=== PATIENT | female | born 1955 | race Caucasian/White ===

== ENCOUNTER 2018-10-25 11:24 | Inpatient (IN) | payer OTHER | END 2018-10-30 10:05 | disposition home or self-care (01) | LOC: J6S 10-26 02:28 → JER 11:24 → JERBED 22:24 ==

== ENCOUNTER 2023-03-23 19:54 | Inpatient (IN) | payer OTHER ==
[2023-03-23] MEDS: LACTATED RINGERS SOLUTION 1,000 ML/1,000 ML INFUS.BAG IV SCH (20:45)
[2023-03-23 20:57] LABS: BASO % 0.7 % (0-2.0); EOS % 0.3 % (0-4.5); HEMATOCRIT 35.5 % (32.4-45.2); HEMOGLOBIN 11.4 GM/dL (10.7-15.3); LYMPH % 10.4 % (8-40); MCH 28.9 pg (25.7-33.7); MCHC 32.2 g/dl (32.0-36.0); MEAN CELL VOLUME 89.9 fl (80-96); MEAN PLT VOLUME 8.3 fl (7.5-11.1); MONO % 10.1 % (3.8-10.2); NEUT % 78.5 % (42.8-82.8); PLATELET COUNT 204 10^3/uL (134-434); RBC 3.95 M/mm3 (3.60-5.2); RDW 15.4 % (11.6-15.6); WHITE BLOOD COUNT 7.4 K/mm3 (4.0-10.0)
[2023-03-23 21:07] LABS: INR 1.31 (0.83-1.09); PROTHROMBIN TIME (PATIENT) 15.1 SEC (9.7-13.0)
[2023-03-23 21:09] LABS: ACTIVATED PTT 26.1 SECONDS (25.2-36.5)
[2023-03-23 21:12] LABS: CHLORIDE 95 mmol/L (98-107); SODIUM 135 mmol/L (136-145)
[2023-03-23 21:15] LABS: ALBUMIN 2.4 g/dl (3.4-5.0); ANION GAP 5 mmol/L (4-13); CO2 35 mmol/L (21-32); GLUCOSE,RANDOM 97 mg/dL (74-106); MAGNESIUM 1.4 mg/dL (1.8-2.4)
[2023-03-23 21:16] LABS: BLOOD UREA NITROGEN 35.2 mg/dL (7-18)
[2023-03-23 21:18] LABS: CREATININE 0.8 mg/dL (0.55-1.3); SGOT/AST 95 U/L (15-37)
[2023-03-23 21:19] LABS: PHOSPHOROUS 2.4 mg/dL (2.5-4.9); SGPT/ALT 16 U/L (13-61)
[2023-03-23 21:20] LABS: BILIRUBIN,TOTAL 0.5 mg/dL (0.2-1); TOT PROT 6.4 g/dl (6.4-8.2)
[2023-03-23 21:21] LABS: ALK PHOS 102 U/L (45-117)
[2023-03-23 21:39] LABS: CALCIUM 15.5 mg/dL (8.5-10.1)
[2023-03-23] MEDS ORDERED: MAGNESIUM SULF 50% (8.12 MEQ/2 ML-1 GM VIAL) IVPB ONE (21:47)
[2023-03-23] MEDS ORDERED: ONDANSETRON 4 MG/2 ML VIAL IVPUSH ONE (21:53)
[2023-03-23] MEDS ORDERED: ONDANSETRON 4 MG/2 ML VIAL ONE (22:27)
[2023-03-23] MEDS ORDERED: MAGNESIUM SULFATE IN WATER 2 GM/50 ML IVPB IVPB ONE (22:27)
[2023-03-23 23:06] LABS: EPI CELLS 8 /uL (0-25.1); HYALINE CASTS 1 /uL (0-3.1); PH,URINE 5.5 (5.0-8.0); URINE APPEARANCE TURBID; URINE BACTERIA >9,000 /uL (0-1359); URINE BILIRUBIN 1+ (NEGATIVE); URINE COLOR DK YELLOW; URINE GLUCOSE (UA) NEGATIVE (NEGATIVE); URINE KETONE NEGATIVE (NEGATIVE); URINE LEUK ESTERASE 3+ (NEGATIVE); URINE NITRITE NEGATIVE (NEGATIVE); URINE PROTEIN 1+ (NEGATIVE); URINE RBC 184 /uL (0-23.9); URINE WBC 135 /uL (0-25.8)
[2023-03-23] MEDS ORDERED: CEFTRIAXONE 1,000 MG in DEXTROSE 5%-WATER - 50 ML IVPB ONE (23:27)
[2023-03-24] MEDS ORDERED: CEFTRIAXONE 1 GM/50 ML BAG ONE (00:03)
[2023-03-24 00:46] LABS: CHLORIDE 95 mmol/L (98-107); SODIUM 137 mmol/L (136-145)
[2023-03-24 00:49] LABS: ALBUMIN 2.2 g/dl (3.4-5.0); ANION GAP 4 mmol/L (4-13); BLOOD UREA NITROGEN 36.1 mg/dL (7-18); CO2 38 mmol/L (21-32); GLUCOSE,RANDOM 86 mg/dL (74-106)
[2023-03-24 00:52] LABS: CREATININE 0.7 mg/dL (0.55-1.3); SGOT/AST 99 U/L (15-37); SGPT/ALT 14 U/L (13-61)
[2023-03-24 00:54] LABS: BILIRUBIN,TOTAL 0.4 mg/dL (0.2-1); TOT PROT 5.8 g/dl (6.4-8.2)
[2023-03-24 00:55] LABS: ALK PHOS 93 U/L (45-117)
[2023-03-24] MEDS ORDERED: ACETAMINOPHEN 1000 MG/100 ML BAG IVPB ONE (01:15)
[2023-03-24] MEDS ORDERED: SODIUM CHLORIDE 1,000 ML IV STA (01:15)
[2023-03-24] MEDS ORDERED: ACETAMINOPHEN INJECTION 100 ML IVPB ONE (01:21)
[2023-03-24] MEDS ORDERED: CALCITONIN - SALMON SYNTHETIC 400 UNIT/2 ML VIAL SQ ONE (02:35)
[2023-03-24] MEDS ORDERED: SODIUM CHLORIDE 1,000 ML IV SCH (03:30)
[2023-03-24] MEDS ORDERED: ONDANSETRON 4 MG/2 ML VIAL IVPUSH PRN (04:00)
[2023-03-24] MEDS: LEVOTHYROXINE NA 112 MCG TABLET (FP) PO SCH (07:00)
[2023-03-24 08:20] LABS: BASO % 0.6 % (0-2.0); EOS % 0.4 % (0-4.5); HEMATOCRIT 33.3 % (32.4-45.2); HEMOGLOBIN 10.8 GM/dL (10.7-15.3); LYMPH % 7.9 % (8-40); MCH 29.8 pg (25.7-33.7); MCHC 32.3 g/dl (32.0-36.0); MEAN CELL VOLUME 92.2 fl (80-96); MEAN PLT VOLUME 8.6 fl (7.5-11.1); MONO % 10.3 % (3.8-10.2); NEUT % 80.8 % (42.8-82.8); PLATELET COUNT 189 10^3/uL (134-434); RBC 3.62 M/mm3 (3.60-5.2); RDW 15.3 % (11.6-15.6); WHITE BLOOD COUNT 6.5 K/mm3 (4.0-10.0)
[2023-03-24 08:36] LABS: CHLORIDE 98 mmol/L (98-107); POTASSIUM 3.3 mmol/L (3.5-5.1); SODIUM 135 mmol/L (136-145)
[2023-03-24 08:40] LABS: ALBUMIN 2.2 g/dl (3.4-5.0); ANION GAP 5 mmol/L (4-13); BLOOD UREA NITROGEN 32.6 mg/dL (7-18); CO2 33 mmol/L (21-32); GLUCOSE,RANDOM 94 mg/dL (74-106); MAGNESIUM 1.8 mg/dL (1.8-2.4)
[2023-03-24 08:43] LABS: CREATININE 0.8 mg/dL (0.55-1.3); PHOSPHOROUS 2.2 mg/dL (2.5-4.9); SGPT/ALT 13 U/L (13-61)
[2023-03-24 08:44] LABS: SGOT/AST 97 U/L (15-37)
[2023-03-24 08:45] LABS: BILIRUBIN,TOTAL 0.5 mg/dL (0.2-1); TOT PROT 5.8 g/dl (6.4-8.2)
[2023-03-24 08:46] LABS: ALK PHOS 96 U/L (45-117)
[2023-03-24] MEDS ORDERED: POTASSIUM CHLORIDE TABS 20 MEQ TABLET.ER (FP) PO ONE (09:12)
[2023-03-24] MEDS ORDERED: MAGNESIUM 1GM/D5W - 1 GM/100 ML IVPB IVPB ONE ×2 (09:12→09:47)
[2023-03-24] MEDS ORDERED: POTASSIUM CHLORIDE ORAL LIQUID 20 MEQ/15 ML ONE (09:47)
[2023-03-24] MEDS ORDERED: HEPARIN NA (PORCINE) 5,000 UNITS/ML 1ML VIAL ONE (09:47)
[2023-03-24] MEDS: HEPARIN NA (PORCINE) 5,000 UNITS/ML 1ML VIAL SQ SCH ×2 (10:00→22:48)
[2023-03-24] MEDS: ATENOLOL 50 MG TABLET (FP) PO SCH (10:00)
[2023-03-24] MEDS ORDERED: CHLORTHALIDONE 25 MG TABLET PO SCH (10:00)
[2023-03-24 10:03] LABS: CALCIUM 14.4 mg/dL (8.5-10.1)
[2023-03-24 15:36] VITALS: BMI 31.8
[2023-03-24] MEDS: LACTATED RINGERS SOLUTION 1,000 ML/1,000 ML INFUS.BAG IV SCH (15:47)
[2023-03-24] MEDS ORDERED: POTASSIUM CHLORIDE ORAL LIQUID 20 MEQ/15 ML PO ONE (16:24)
[2023-03-24] MEDS ORDERED: NAPH,MB-DB/K PH,MBDB POWDER PACKET PO ONE (16:27)
[2023-03-24] MEDS: SODIUM CHLORIDE 1,000 ML IV SCH (18:16)
[2023-03-24] MEDS: CALCITONIN - SALMON SYNTHETIC 400 UNIT/2 ML VIAL SQ SCH (18:17)
[2023-03-24] MEDS ORDERED: MUPIROCIN 2% TOPICAL OINTMENT FOR DECOLONIZATION NS SCH (22:00)
[2023-03-24] MEDS ORDERED: CHLORHEXIDINE GLUCONATE 4% CLEANSER FOR DECOLONIZATION TP SCH (22:00)
[2023-03-24] MEDS: CEFTRIAXONE 1 GM in DEXTROSE 5%-WATER - 50 ML IVPB SCH (22:48)
[2023-03-24] MEDS: ROSUVASTATIN CA 5 MG TABLET PO SCH (23:05)
[2023-03-25] MEDS: LEVOTHYROXINE NA 112 MCG TABLET (FP) PO SCH (06:06)
[2023-03-25 07:54] LABS: POTASSIUM 3.9 mmol/L (3.5-5.1)
[2023-03-25 08:02] LABS: CALCIUM 13.8 mg/dL (8.5-10.1)
[2023-03-25 08:03] LABS: ALBUMIN 2.1 g/dl (3.4-5.0); BLOOD UREA NITROGEN 28.4 mg/dL (7-18)
[2023-03-25 08:06] LABS: CREATININE 0.8 mg/dL (0.55-1.3)
[2023-03-25 08:07] LABS: BILIRUBIN,TOTAL 0.4 mg/dL (0.2-1)
[2023-03-25 08:08] LABS: TOT PROT 5.5 g/dl (6.4-8.2)
[2023-03-25] MEDS: HEPARIN NA (PORCINE) 5,000 UNITS/ML 1ML VIAL SQ SCH ×2 (10:35→21:27)
[2023-03-25] MEDS: ATENOLOL 50 MG TABLET (FP) PO SCH (14:11)
[2023-03-25] MEDS: SODIUM CHLORIDE 1,000 ML IV SCH ×2 (16:22→23:56)
[2023-03-25] MEDS: AMINO ACIDS/PROTEIN HYDROLYS 30 ML LIQUID.PKT PO SCH (17:59)
[2023-03-25] MEDS: ROSUVASTATIN CA 5 MG TABLET PO SCH (21:27)
[2023-03-25] MEDS: CEFTRIAXONE 1 GM in DEXTROSE 5%-WATER - 50 ML IVPB SCH (21:27)
[2023-03-26] MEDS: LEVOTHYROXINE NA 112 MCG TABLET (FP) PO SCH (06:27)
[2023-03-26 08:23] LABS: BASO % 0.6 % (0-2.0); EOS % 0.2 % (0-4.5); HEMATOCRIT 31.2 % (32.4-45.2); LYMPH % 8.4 % (8-40); MCH 28.7 pg (25.7-33.7); MEAN CELL VOLUME 89.8 fl (80-96); MEAN PLT VOLUME 8.8 fl (7.5-11.1); MONO % 9.5 % (3.8-10.2); NEUT % 81.3 % (42.8-82.8); PLATELET COUNT 245 10^3/uL (134-434); RBC 3.47 M/mm3 (3.60-5.2); RDW 15.6 % (11.6-15.6); WHITE BLOOD COUNT 6.5 K/mm3 (4.0-10.0)
[2023-03-26 08:46] LABS: CALCIUM 12.9 mg/dL (8.5-10.1)
[2023-03-26 08:47] LABS: BLOOD UREA NITROGEN 26.9 mg/dL (7-18)
[2023-03-26 08:50] LABS: CREATININE 0.7 mg/dL (0.55-1.3)
[2023-03-26 08:51] LABS: BILIRUBIN,TOTAL 0.4 mg/dL (0.2-1)
[2023-03-26 08:53] LABS: TOT PROT 5.6 g/dl (6.4-8.2)
[2023-03-26] MEDS: DOCUSATE SODIUM 100 MG CAPSULE (FP) PO PRN (09:05)
[2023-03-26] MEDS: AMINO ACIDS/PROTEIN HYDROLYS 30 ML LIQUID.PKT PO SCH ×3 (09:05→17:03)
[2023-03-26] MEDS: ATENOLOL 50 MG TABLET (FP) PO SCH (09:06)
[2023-03-26] MEDS: HEPARIN NA (PORCINE) 5,000 UNITS/ML 1ML VIAL SQ SCH ×2 (09:06→21:48)
[2023-03-26] MEDS ORDERED: ZOLEDRONIC ACID 4 MG in SODIUM CHLORIDE 100 ML IVPB ONE (15:00)
[2023-03-26] MEDS: ASCORBIC ACID 250 MG TABLET (FP) PO SCH (15:17)
[2023-03-26] MEDS: MULTIVITAMINS (DAILY MVI) TABLET (FP) PO SCH (15:17)
[2023-03-26] MEDS: SODIUM CHLORIDE 1,000 ML IV SCH (15:55)
[2023-03-26] MEDS ORDERED: ACETAMINOPHEN 325 MG TABLET (FP) PO ONE (20:36)
[2023-03-26] MEDS ORDERED: POTASSIUM CHLORIDE ORAL LIQUID 20 MEQ/15 ML PO ONE (21:30)
[2023-03-26] MEDS: ROSUVASTATIN CA 5 MG TABLET PO SCH (21:48)
[2023-03-26] MEDS: CEFTRIAXONE 1 GM in DEXTROSE 5%-WATER - 50 ML IVPB SCH (21:48)
[2023-03-27] MEDS: LEVOTHYROXINE NA 112 MCG TABLET (FP) PO SCH (06:09)
[2023-03-27 07:52] LABS: BASO % 0.2 % (0-2.0); HEMATOCRIT 30.3 % (32.4-45.2); HEMOGLOBIN 10.2 GM/dL (10.7-15.3); LYMPH % 5.6 % (8-40); MCH 29.7 pg (25.7-33.7); MCHC 33.6 g/dl (32.0-36.0); MEAN CELL VOLUME 88.6 fl (80-96); MEAN PLT VOLUME 8.6 fl (7.5-11.1); MONO % 7.3 % (3.8-10.2); NEUT % 86.9 % (42.8-82.8); PLATELET COUNT 234 10^3/uL (134-434); RBC 3.42 M/mm3 (3.60-5.2); RDW 15.3 % (11.6-15.6)
[2023-03-27 08:11] LABS: CHLORIDE 108 mmol/L (98-107); SODIUM 145 mmol/L (136-145)
[2023-03-27 08:14] LABS: CALCIUM 13.3 mg/dL (8.5-10.1)
[2023-03-27 08:15] LABS: ALBUMIN 2.1 g/dl (3.4-5.0); CO2 30 mmol/L (21-32); GLUCOSE,RANDOM 110 mg/dL (74-106)
[2023-03-27 08:17] LABS: BLOOD UREA NITROGEN 29.7 mg/dL (7-18)
[2023-03-27 08:18] LABS: CREATININE 0.7 mg/dL (0.55-1.3); SGOT/AST 100 U/L (15-37); SGPT/ALT 14 U/L (13-61)
[2023-03-27 08:19] LABS: TOT PROT 5.5 g/dl (6.4-8.2)
[2023-03-27 08:20] LABS: BILIRUBIN,TOTAL 0.5 mg/dL (0.2-1)
[2023-03-27 08:21] LABS: ALK PHOS 88 U/L (45-117)
[2023-03-27 08:26] LABS: ANION GAP 7 mmol/L (4-13); POTASSIUM 2.7 mmol/L (3.5-5.1)
[2023-03-27] MEDS: ASCORBIC ACID 250 MG TABLET (FP) PO SCH (10:08)
[2023-03-27] MEDS: HEPARIN NA (PORCINE) 5,000 UNITS/ML 1ML VIAL SQ SCH ×2 (10:08→21:21)
[2023-03-27] MEDS: MULTIVITAMINS (DAILY MVI) TABLET (FP) PO SCH (10:08)
[2023-03-27] MEDS: AMINO ACIDS/PROTEIN HYDROLYS 30 ML LIQUID.PKT PO SCH ×3 (10:08→16:51)
[2023-03-27] MEDS: ATENOLOL 50 MG TABLET (FP) PO SCH (10:09)
[2023-03-27] MEDS ORDERED: POTASSIUM CHLORIDE ORAL LIQUID 20 MEQ/15 ML PO ONE (12:00)
[2023-03-27] MEDS: KCL 10 MEQ IVPB 10 MEQ/100 ML INFUS.BAG IVPB SCH ×3 (12:14→16:19)
[2023-03-27] MEDS: SODIUM CHLORIDE 1,000 ML IV SCH (16:43)
[2023-03-27] MEDS: ROSUVASTATIN CA 5 MG TABLET PO SCH (21:21)
[2023-03-27] MEDS: DOCUSATE SODIUM 100 MG CAPSULE (FP) PO PRN (22:44)
[2023-03-28] MEDS: SODIUM CHLORIDE 1,000 ML IV SCH (00:24)
[2023-03-28] MEDS ORDERED: MELATONIN 5 MG TABLETS PO ONE (02:07)
[2023-03-28] MEDS: LEVOTHYROXINE NA 112 MCG TABLET (FP) PO SCH (06:28)
[2023-03-28] MEDS: AMINO ACIDS/PROTEIN HYDROLYS 30 ML LIQUID.PKT PO SCH ×3 (08:44→19:06)
[2023-03-28] MEDS: HEPARIN NA (PORCINE) 5,000 UNITS/ML 1ML VIAL SQ SCH ×2 (09:10→23:26)
[2023-03-28] MEDS: MULTIVITAMINS (DAILY MVI) TABLET (FP) PO SCH (09:10)
[2023-03-28] MEDS: ASCORBIC ACID 250 MG TABLET (FP) PO SCH (09:10)
[2023-03-28] MEDS: ATENOLOL 50 MG TABLET (FP) PO SCH (10:13)
[2023-03-28 12:00] LABS: CHLORIDE 112 mmol/L (98-107); SODIUM 147 mmol/L (136-145)
[2023-03-28 12:02] LABS: CALCIUM 11.4 mg/dL (8.5-10.1)
[2023-03-28 12:03] LABS: BLOOD UREA NITROGEN 28.6 mg/dL (7-18); CO2 28 mmol/L (21-32); GLUCOSE,RANDOM 115 mg/dL (74-106)
[2023-03-28 12:06] LABS: CREATININE 0.7 mg/dL (0.55-1.3)
[2023-03-28 12:07] LABS: SGOT/AST 89 U/L (15-37); SGPT/ALT 14 U/L (13-61)
[2023-03-28 12:08] LABS: BILIRUBIN,TOTAL 0.4 mg/dL (0.2-1)
[2023-03-28 12:09] LABS: ALK PHOS 80 U/L (45-117)
[2023-03-28 12:14] LABS: ANION GAP 7 mmol/L (4-13); POTASSIUM 2.4 mmol/L (3.5-5.1)
[2023-03-28] MEDS: POTASSIUM CHLORIDE ORAL LIQUID 20 MEQ/15 ML PO SCH ×2 (14:17→23:26)
[2023-03-28] MEDS: KCL 10 MEQ IVPB 10 MEQ/100 ML INFUS.BAG IVPB SCH ×3 (14:58→19:06)
[2023-03-28 16:07] LABS: CHLORIDE 109 mmol/L (98-107); SODIUM 147 mmol/L (136-145)
[2023-03-28 16:09] LABS: BLOOD UREA NITROGEN 28.4 mg/dL (7-18); CO2 27 mmol/L (21-32); GLUCOSE,RANDOM 135 mg/dL (74-106)
[2023-03-28 16:12] LABS: CREATININE 0.8 mg/dL (0.55-1.3)
[2023-03-28] MEDS: D5-1/2NS+40 MEQ KCL - 40 MEQ/1,000 ML INFUS.BAG IV SCH (16:30)
[2023-03-28 16:33] LABS: ANION GAP 11 mmol/L (4-13); POTASSIUM 2.5 mmol/L (3.5-5.1)
[2023-03-28] MEDS: DOCUSATE SODIUM 100 MG CAPSULE (FP) PO PRN (17:25)
[2023-03-28] MEDS: ROSUVASTATIN CA 5 MG TABLET PO SCH (23:26)
[2023-03-29] MEDS ORDERED: MELATONIN 5 MG TABLETS PO ONE (00:18)
[2023-03-29] MEDS ORDERED: ACETAMINOPHEN 325 MG TABLET (FP) PO ONE (00:18)
[2023-03-29] MEDS: CALCITONIN - SALMON SYNTHETIC 400 UNIT/2 ML VIAL SQ SCH (00:42)
[2023-03-29] MEDS: LEVOTHYROXINE NA 112 MCG TABLET (FP) PO SCH (06:12)
[2023-03-29] MEDS: AMINO ACIDS/PROTEIN HYDROLYS 30 ML LIQUID.PKT PO SCH ×3 (08:46→17:12)
[2023-03-29 09:35] LABS: BASO % 0.1 % (0-2.0); EOS % 0.7 % (0-4.5); HEMATOCRIT 28.5 % (32.4-45.2); HEMOGLOBIN 9.1 GM/dL (10.7-15.3); MCH 28.7 pg (25.7-33.7); MCHC 31.9 g/dl (32.0-36.0); MEAN PLT VOLUME 8.9 fl (7.5-11.1); MONO % 10.4 % (3.8-10.2); NEUT % 80.8 % (42.8-82.8); PLATELET COUNT 179 10^3/uL (134-434); RBC 3.16 M/mm3 (3.60-5.2); RDW 15.5 % (11.6-15.6); WHITE BLOOD COUNT 7.3 K/mm3 (4.0-10.0)
[2023-03-29 10:00] LABS: POTASSIUM 3.8 mmol/L (3.5-5.1)
[2023-03-29 10:17] LABS: CALCIUM 9.8 mg/dL (8.5-10.1)
[2023-03-29 10:19] LABS: ALBUMIN 1.9 g/dl (3.4-5.0); BLOOD UREA NITROGEN 29.3 mg/dL (7-18)
[2023-03-29 10:21] LABS: CREATININE 0.7 mg/dL (0.55-1.3)
[2023-03-29 10:23] LABS: BILIRUBIN,TOTAL 0.4 mg/dL (0.2-1); TOT PROT 4.8 g/dl (6.4-8.2)
[2023-03-29] MEDS: POTASSIUM CHLORIDE ORAL LIQUID 20 MEQ/15 ML PO SCH ×2 (10:47→21:38)
[2023-03-29] MEDS: MULTIVITAMINS (DAILY MVI) TABLET (FP) PO SCH (10:47)
[2023-03-29] MEDS: HEPARIN NA (PORCINE) 5,000 UNITS/ML 1ML VIAL SQ SCH ×2 (10:47→21:38)
[2023-03-29] MEDS: ASCORBIC ACID 250 MG TABLET (FP) PO SCH (10:48)
[2023-03-29] MEDS: ATENOLOL 50 MG TABLET (FP) PO SCH (10:48)
[2023-03-29] MEDS: D5-1/2NS+40 MEQ KCL - 40 MEQ/1,000 ML INFUS.BAG IV SCH (15:11)
[2023-03-29] MEDS: ROSUVASTATIN CA 5 MG TABLET PO SCH (21:38)
[2023-03-29] MEDS: MELATONIN 5 MG TABLETS PO PRN (23:22)
[2023-03-30] MEDS: D5-1/2NS+40 MEQ KCL - 40 MEQ/1,000 ML INFUS.BAG IV SCH ×2 (03:21→16:37)
[2023-03-30] MEDS: LEVOTHYROXINE NA 112 MCG TABLET (FP) PO SCH (06:04)
[2023-03-30] MEDS: MULTIVITAMINS (DAILY MVI) TABLET (FP) PO SCH (09:27)
[2023-03-30] MEDS: AMINO ACIDS/PROTEIN HYDROLYS 30 ML LIQUID.PKT PO SCH ×3 (09:27→17:26)
[2023-03-30] MEDS: ASCORBIC ACID 250 MG TABLET (FP) PO SCH (09:27)
[2023-03-30] MEDS: HEPARIN NA (PORCINE) 5,000 UNITS/ML 1ML VIAL SQ SCH ×2 (09:27→21:11)
[2023-03-30] MEDS: POTASSIUM CHLORIDE ORAL LIQUID 20 MEQ/15 ML PO SCH ×2 (09:27→21:12)
[2023-03-30] MEDS: ATENOLOL 50 MG TABLET (FP) PO SCH (09:29)
[2023-03-30 10:51] LABS: POTASSIUM 3.7 mmol/L (3.5-5.1)
[2023-03-30 10:53] LABS: BLOOD UREA NITROGEN 19.7 mg/dL (7-18)
[2023-03-30 10:56] LABS: CREATININE 0.6 mg/dL (0.55-1.3)
[2023-03-30] MEDS: LACTULOSE 20 GM/30 ML UDC (FOR ORAL USE ONLY) PO SCH ×2 (13:13→21:12)
[2023-03-30] MEDS: ROSUVASTATIN CA 5 MG TABLET PO SCH (21:11)
[2023-03-30] MEDS: MELATONIN 5 MG TABLETS PO PRN (21:11)
[2023-03-31] MEDS: D5-1/2NS+40 MEQ KCL - 40 MEQ/1,000 ML INFUS.BAG IV SCH (05:45)
[2023-03-31] MEDS: LACTULOSE 20 GM/30 ML UDC (FOR ORAL USE ONLY) PO SCH ×3 (05:59→21:42)
[2023-03-31] MEDS: LEVOTHYROXINE NA 112 MCG TABLET (FP) PO SCH (06:00)
[2023-03-31] MEDS: ASCORBIC ACID 250 MG TABLET (FP) PO SCH ×2 (10:47→12:21)
[2023-03-31] MEDS: POTASSIUM CHLORIDE ORAL LIQUID 20 MEQ/15 ML PO SCH ×2 (10:47→21:42)
[2023-03-31] MEDS: AMINO ACIDS/PROTEIN HYDROLYS 30 ML LIQUID.PKT PO SCH ×3 (10:48→17:50)
[2023-03-31] MEDS: MULTIVITAMINS (DAILY MVI) TABLET (FP) PO SCH ×2 (10:49→12:14)
[2023-03-31] MEDS: ATENOLOL 50 MG TABLET (FP) PO SCH (12:12)
[2023-03-31] MEDS: ROSUVASTATIN CA 5 MG TABLET PO SCH (21:43)
[2023-04-01] MEDS: LEVOTHYROXINE NA 112 MCG TABLET (FP) PO SCH (06:18)
[2023-04-01] MEDS: LACTULOSE 20 GM/30 ML UDC (FOR ORAL USE ONLY) PO SCH ×3 (06:18→22:43)
[2023-04-01] MEDS: AMINO ACIDS/PROTEIN HYDROLYS 30 ML LIQUID.PKT PO SCH ×3 (08:30→18:26)
[2023-04-01] MEDS: ASCORBIC ACID 250 MG TABLET (FP) PO SCH (09:54)
[2023-04-01] MEDS: MULTIVITAMINS (DAILY MVI) TABLET (FP) PO SCH (09:54)
[2023-04-01] MEDS: POTASSIUM CHLORIDE ORAL LIQUID 20 MEQ/15 ML PO SCH ×2 (09:55→22:43)
[2023-04-01] MEDS: ATENOLOL 50 MG TABLET (FP) PO SCH (09:55)
[2023-04-01] MEDS: ROSUVASTATIN CA 5 MG TABLET PO SCH (22:44)
[2023-04-02] MEDS: LACTULOSE 20 GM/30 ML UDC (FOR ORAL USE ONLY) PO SCH ×4 (05:53→22:31)
[2023-04-02] MEDS: LEVOTHYROXINE NA 112 MCG TABLET (FP) PO SCH (06:34)
[2023-04-02 06:55] VITALS: RESP 18
[2023-04-02] MEDS: AMINO ACIDS/PROTEIN HYDROLYS 30 ML LIQUID.PKT PO SCH ×3 (09:18→17:55)
[2023-04-02] MEDS: ASCORBIC ACID 250 MG TABLET (FP) PO SCH (09:18)
[2023-04-02] MEDS: MULTIVITAMINS (DAILY MVI) TABLET (FP) PO SCH (09:18)
[2023-04-02] MEDS: POTASSIUM CHLORIDE ORAL LIQUID 20 MEQ/15 ML PO SCH ×3 (09:19→22:31)
[2023-04-02] MEDS: ATENOLOL 50 MG TABLET (FP) PO SCH (09:20)
[2023-04-02] MEDS: MELATONIN 5 MG TABLETS PO PRN (21:56)
[2023-04-02] MEDS: ROSUVASTATIN CA 5 MG TABLET PO SCH (21:58)
[2023-04-03] MEDS: LACTULOSE 20 GM/30 ML UDC (FOR ORAL USE ONLY) PO SCH ×2 (05:34→14:30)
[2023-04-03] MEDS: LEVOTHYROXINE NA 112 MCG TABLET (FP) PO SCH (06:00)
[2023-04-03] MEDS: AMINO ACIDS/PROTEIN HYDROLYS 30 ML LIQUID.PKT PO SCH ×3 (10:57→17:29)
[2023-04-03] MEDS: POTASSIUM CHLORIDE ORAL LIQUID 20 MEQ/15 ML PO SCH (10:57)
[2023-04-03] MEDS: ASCORBIC ACID 250 MG TABLET (FP) PO SCH (10:57)
[2023-04-03] MEDS: MULTIVITAMINS (DAILY MVI) TABLET (FP) PO SCH (10:58)
[2023-04-03] MEDS: ATENOLOL 50 MG TABLET (FP) PO SCH (10:59)
[2023-04-03 14:38] VITALS: BP 126/80; PULSE 94; TEMP 98.1
== END 2023-04-03 17:46 | disposition home or self-care (01) | DRG 640 ==
LOC: JER 19:54 → JERBED 21:45 → J4S 03-24 14:27
PROVIDERS: ADMIT Internal Medicine; ATTEND Family Medicine
DX: E83.52 Hypercalcemia (principal); G93.41 Metabolic encephalopathy; N39.0 Urinary tract infection, site not specified; C78.01 Secondary malignant neoplasm of right lung; I24.89 Other forms of acute ischemic heart disease; J91.0 Malignant pleural effusion; E86.0 Dehydration; I10 Essential (primary) hypertension; E03.9 Hypothyroidism, unspecified; E78.5 Hyperlipidemia, unspecified; E83.42 Hypomagnesemia; C57.9 Malignant neoplasm of female genital organ, unspecified; E88.09 Other disorders of plasma-protein metabolism, not elsewhere classified; E83.39 Other disorders of phosphorus metabolism; E87.6 Hypokalemia
CPT/HCPCS: 0241U-QW; 36415; 70450-TC; 71045-TC-FY; 71046-TC-FY; 80048; 80053; 81003; 82140; 82310; 82962; 83735; 83970; 84100; 84439; 84443; 84484; 85025; 85610; 85730; 86850; 86900; 86901; 87086; 87186; 93005; 93010; 97116-GP; 99285-25; J1644; J3489

== ENCOUNTER 2023-04-11 13:53 | Observation (INO) | payer OTHER ==
[2023-04-11 14:36] VITALS: BMI 29.2
[2023-04-11 15:05] LABS: BASO % 0.1 % (0-2.0); EOS % 0.1 % (0-4.5); HEMATOCRIT 38.2 % (32.4-45.2); HEMOGLOBIN 12.1 GM/dL (10.7-15.3); MCH 28.3 pg (25.7-33.7); MCHC 31.8 g/dl (32.0-36.0); MEAN CELL VOLUME 89.2 fl (80-96); MEAN PLT VOLUME 8.1 fl (7.5-11.1); MONO % 5.9 % (3.8-10.2); NEUT % 89.9 % (42.8-82.8); PLATELET COUNT 188 10^3/uL (134-434); RBC 4.29 M/mm3 (3.60-5.2); RDW 17.9 % (11.6-15.6); WHITE BLOOD COUNT 15.2 K/mm3 (4.0-10.0)
[2023-04-11 15:09] LABS: INR 2.51 (0.83-1.09); PROTHROMBIN TIME (PATIENT) 28.9 SEC (9.7-13.0)
[2023-04-11 15:12] LABS: ACTIVATED PTT 26.7 SECONDS (25.2-36.5)
[2023-04-11 15:36] LABS: CALCIUM 8.6 mg/dL (8.5-10.1)
[2023-04-11 15:37] LABS: BLOOD UREA NITROGEN 21.5 mg/dL (7-18); MAGNESIUM 1.4 mg/dL (1.8-2.4)
[2023-04-11 15:40] LABS: CREATININE 0.8 mg/dL (0.55-1.3)
[2023-04-11 15:42] LABS: BILIRUBIN,TOTAL 0.6 mg/dL (0.2-1)
[2023-04-11] MEDS ORDERED: VANCOMYCIN 1 GM PREMIX - 1 GM/200 ML BAG IVPB ONE (15:42)
[2023-04-11] MEDS ORDERED: MAGNESIUM SULFATE IN WATER 2 GM/50 ML IVPB IVPB ONE ×2 (15:42→15:57)
[2023-04-11] MEDS ORDERED: PIPERACILLIN/TAZOB 4.5 GM 4.5 GM/100 ML BAG IVPB ONE (15:57)
[2023-04-11] MEDS: PIPERACILLIN/TAZOB 4.5 GM 4.5 GM in DEXTROSE 5%-WATER 100 ML IVPB ONE ×2 (16:03→17:00)
[2023-04-11] MEDS ORDERED: VANCOMYCIN 1 GRAM (PRE-DOCKED) 1,000 MG/250 ML BAG IVPB ONE (17:32)
[2023-04-11] MEDS ORDERED: SODIUM CHLORIDE 0.9% 500 ML INFUS.BAG IV ONE (18:38)
[2023-04-11] MEDS: ACETAMINOPHEN 1000 MG/100 ML BAG IVPB SCH (21:10)
[2023-04-12] MEDS: ACETAMINOPHEN 1000 MG/100 ML BAG IVPB SCH ×2 (03:49→13:21)
[2023-04-12] MEDS: LEVOTHYROXINE NA 112 MCG TABLET (FP) PO SCH (06:22)
[2023-04-12 09:06] LABS: HEMATOCRIT 35.3 % (32.4-45.2); HEMOGLOBIN 11.4 GM/dL (10.7-15.3); MCHC 32.2 g/dl (32.0-36.0); MEAN CELL VOLUME 90.3 fl (80-96); MEAN PLT VOLUME 8.4 fl (7.5-11.1); PLATELET COUNT 152 10^3/uL (134-434); RBC 3.91 M/mm3 (3.60-5.2); RDW 18.6 % (11.6-15.6); WHITE BLOOD COUNT 14.7 K/mm3 (4.0-10.0)
[2023-04-12 09:21] LABS: POTASSIUM 3.5 mmol/L (3.5-5.1)
[2023-04-12 09:24] LABS: ALBUMIN 1.9 g/dl (3.4-5.0); BLOOD UREA NITROGEN 24.6 mg/dL (7-18); CALCIUM 8.3 mg/dL (8.5-10.1)
[2023-04-12 09:27] LABS: CREATININE 0.8 mg/dL (0.55-1.3)
[2023-04-12 09:28] LABS: BILIRUBIN,TOTAL 1.1 mg/dL (0.2-1); TOT PROT 5.5 g/dl (6.4-8.2)
[2023-04-12 10:06] LABS: ANISOCYTOSIS 0; MACROCYTOSIS 0
[2023-04-12] MEDS ORDERED: FENTANYL PATCH WASTE TD PRN (12:55)
[2023-04-12] MEDS ORDERED: DOCUSATE SODIUM 100 MG CAPSULE (FP) PO PRN (12:55)
[2023-04-12] MEDS ORDERED: COLLAGENASE CLOSTRIDIUM HIST. 30 GRAMS TUBE TP SCH (13:00)
[2023-04-12] MEDS ORDERED: fentaNYL 12mcg/hr PATCH.TD72 TD SCH (13:00)
[2023-04-12] MEDS: PIPERACILLIN/TAZOB 3.375 GM 3.375 GM in DEXTROSE 5%-WATER - 50 ML IVPB SCH ×2 (14:19→17:01)
[2023-04-12] MEDS ORDERED: LORazepam 2 MG/ML SDV VIAL IVPUSH ONE (19:37)
[2023-04-12] MEDS ORDERED: HALOPERIDOL LACTATE 5 MG/ML IM ONE (21:16)
[2023-04-13] MEDS: PIPERACILLIN/TAZOB 3.375 GM 3.375 GM in DEXTROSE 5%-WATER - 50 ML IVPB SCH ×3 (03:19→17:54)
[2023-04-13] MEDS ORDERED: LORazepam 2 MG/ML SDV VIAL IVPUSH ONE (04:30)
[2023-04-13] MEDS: LEVOTHYROXINE NA 112 MCG TABLET (FP) PO SCH (06:52)
[2023-04-13 08:28] LABS: URINE APPEARANCE CLOUDY; URINE BILIRUBIN NEGATIVE (NEGATIVE); URINE COLOR YELLOW; URINE GLUCOSE (UA) NEGATIVE (NEGATIVE)
[2023-04-13 08:29] LABS: URINE KETONE TRACE (NEGATIVE); URINE LEUK ESTERASE 1+ (NEGATIVE); URINE NITRITE NEGATIVE (NEGATIVE); URINE PROTEIN 3+ (NEGATIVE)
[2023-04-13] MEDS ORDERED: DEXTROSE 5%-NORMAL SALINE 1,000 ML IV SCH (10:45)
[2023-04-13] MEDS ORDERED: HALOPERIDOL LACTATE 5 MG/ML IM ONE (13:39)
[2023-04-13] MEDS ORDERED: OLANZapine 2.5 MG TABLET PO SCH (22:00)
[2023-04-13 23:29] VITALS: BP 132/73; PULSE 123; RESP 20; TEMP 97.4
== END 2023-04-13 23:36 ==
LOC: JER 13:53 → UNDOADMOB 14:43 → JERBED 14:43 → INTOOBSV 14:43 → JERBED 15:55 → J7W 21:04
PROVIDERS: ADMIT Internal Medicine; ATTEND Internal Medicine
PROC: 3E033NZ Introduction of Analgesics, Hypnotics, Sedatives into Peripheral Vein, Percutaneous Approach (ICD-10-PCS; principal; 2023-04-11)
PROC: 3E0337Z Introduction of Electrolytic and Water Balance Substance into Peripheral Vein, Percutaneous Approach (ICD-10-PCS; 2023-04-11)
PROC: 3E023NZ Introduction of Analgesics, Hypnotics, Sedatives into Muscle, Percutaneous Approach (ICD-10-PCS; 2023-04-11)
PROC: 3E03329 Introduction of Other Anti-infective into Peripheral Vein, Percutaneous Approach (ICD-10-PCS; 2023-04-11)
DX: L03.317 Cellulitis of buttock (principal); R62.7 Adult failure to thrive; C76.3 Malignant neoplasm of pelvis; Z71.89 Other specified counseling; C77.9 Secondary and unspecified malignant neoplasm of lymph node, unspecified; R53.1 Weakness; C78.00 Secondary malignant neoplasm of unspecified lung; S31.819A Unspecified open wound of right buttock, initial encounter; X58.XXXA Exposure to other specified factors, initial encounter; Y93.89 Activity, other specified; Y92.89 Other specified places as the place of occurrence of the external cause; R00.0 Tachycardia, unspecified; E03.9 Hypothyroidism, unspecified; I10 Essential (primary) hypertension; E78.5 Hyperlipidemia, unspecified; N32.81 Overactive bladder; R63.0 Anorexia; D64.9 Anemia, unspecified; K62.5 Hemorrhage of anus and rectum
CPT/HCPCS: 0241U-QW; 36415; 71045-TC-FY; 74177-TC; 80053; 81003; 82962; 83735; 85025; 85610; 85730; 86704; 86803; 86850; 86900; 86901; 87040; 87086; 87186; 87340; 87517; 93005; 93010; 96365; 96366; 96367; 96372; 96375; 97162-GP; 99285-25; G0378

== ENCOUNTER 2023-04-16 17:28 | Inpatient (IN) | payer OTHER ==
[2023-04-16] MEDS ORDERED: ACETAMINOPHEN 1000 MG/100 ML BAG IVPB ONE (17:55)
[2023-04-16] MEDS ORDERED: ACETAMINOPHEN INJECTION 100 ML IVPB ONE (17:57)
[2023-04-16 18:13] LABS: VENOUS BASE EXCESS -7.5 mmol/L (-2-2); VENOUS PCO2 42.6 mmHg (38-52); VENOUS PH 7.269 (7.310-7.410)
[2023-04-16 18:14] LABS: MCH 28.2 pg (25.7-33.7); MCHC 30.2 g/dl (32.0-36.0); MEAN CELL VOLUME 93.6 fl (80-96); MEAN PLT VOLUME 8.6 fl (7.5-11.1); PLATELET COUNT 197 10^3/uL (134-434); RBC 3.53 M/mm3 (3.60-5.2); RDW 20.2 % (11.6-15.6); WHITE BLOOD COUNT 27.2 K/mm3 (4.0-10.0)
[2023-04-16 18:23] LABS: ADD RBC MORPHOLOGY YES
[2023-04-16 18:30] LABS: INR 2.17 (0.83-1.09)
[2023-04-16 18:32] LABS: POTASSIUM 4.1 mmol/L (3.5-5.1)
[2023-04-16] MEDS ORDERED: PIPERACILLIN/TAZOB 4.5 GM 4.5 GM in DEXTROSE 5%-WATER 100 ML IVPB ONE (18:32)
[2023-04-16] MEDS ORDERED: VANCOMYCIN 1,000 MG in DEXTROSE 5%-WATER - 250 ML IVPB ONE (18:32)
[2023-04-16 18:33] LABS: ACTIVATED PTT 22.3 SECONDS (25.2-36.5)
[2023-04-16 18:36] LABS: CALCIUM 8.9 mg/dL (8.5-10.1)
[2023-04-16 18:39] LABS: CREATININE 1.7 mg/dL (0.55-1.3)
[2023-04-16 18:41] LABS: BILIRUBIN,TOTAL 0.9 mg/dL (0.2-1); TOT PROT 5.3 g/dl (6.4-8.2)
[2023-04-16 18:46] LABS: BLOOD UREA NITROGEN 69.3 mg/dL (7-18)
[2023-04-16 18:54] LABS: ANISOCYTOSIS 2+; MACROCYTOSIS 0; OVALOCYTE 2+; ROULEAU 2+; TEAR DROP CELLS 2+; TOXIC GRANULATION 2+
[2023-04-16] MEDS ORDERED: LACTATED RINGERS SOLUTION 1000 ML INFUS.BAG IV ONE (18:54)
[2023-04-16] MEDS ORDERED: VANCOMYCIN 1 GRAM (PRE-DOCKED) 1,000 MG/250 ML BAG IVPB ONE (19:03)
[2023-04-16] MEDS ORDERED: PIPERACILLIN/TAZOB 3.375 GM 3.375 GM/50 ML BAG IVPB ONE (19:03)
[2023-04-16] MEDS ORDERED: PIPERACILLIN/TAZOB 4.5 GM 4.5 GM/100 ML BAG IVPB ONE (19:08)
[2023-04-16 21:17] LABS: URINE APPEARANCE TURBID; URINE BILIRUBIN NEGATIVE (NEGATIVE); URINE COLOR YELLOW; URINE GLUCOSE (UA) NEGATIVE (NEGATIVE); URINE KETONE TRACE (NEGATIVE); URINE LEUK ESTERASE 1+ (NEGATIVE); URINE NITRITE NEGATIVE (NEGATIVE); URINE PROTEIN 2+ (NEGATIVE)
[2023-04-16 21:49] LABS: EPI CELLS QNS /uL (0-25.1); HYALINE CASTS QNS /uL (0-3.1); URINE BACTERIA QNS /uL (0-1359); URINE RBC QNS /uL (0-23.9); URINE WBC QNS /uL (0-25.8); YEAST QNS (NEGATIVE)
[2023-04-16] MEDS ORDERED: SODIUM CHLORIDE 1,000 ML IV STA ×2 (21:50→22:20)
[2023-04-16] MEDS ORDERED: VANCOMYCIN 1,000 MG in DEXTROSE 5%-WATER - 250 ML IVPB SCH (22:00)
[2023-04-16] MEDS ORDERED: D5-1/2NS+20 MEQ KCL - 20 MEQ/1,000 ML INFUS.BAG IV SCH (22:00)
[2023-04-16 22:08] LABS: MAGNESIUM 2.2 mg/dL (1.8-2.4)
[2023-04-16 22:10] LABS: PHOSPHOROUS 5.4 mg/dL (2.5-4.9)
[2023-04-17] MEDS ORDERED: ACETAMINOPHEN 1000 MG/100 ML BAG IVPB PRN ×2 (00:30→08:14)
[2023-04-17 02:26] VITALS: BMI 28.5
[2023-04-17] MEDS: PIPERACILLIN/TAZOB 2.25 GM 2.25 GM in DEXTROSE 5%-WATER - 50 ML IVPB SCH ×4 (03:00→15:04)
[2023-04-17] MEDS ORDERED: VANCOMYCIN/WATER FOR INJ (PEG) 1,000 MG/200 ML BAG IVPB ONE (06:00)
[2023-04-17] MEDS: DEXTROSE 5%-0.45% SALINE 1,000 ML IV SCH (06:15)
[2023-04-17 08:30] LABS: HEMATOCRIT 29.7 % (32.4-45.2); HEMOGLOBIN 9.1 GM/dL (10.7-15.3); MCH 29.3 pg (25.7-33.7); MCHC 30.8 g/dl (32.0-36.0); MEAN CELL VOLUME 95.2 fl (80-96); MEAN PLT VOLUME 8.3 fl (7.5-11.1); PLATELET COUNT 184 10^3/uL (134-434); RBC 3.11 M/mm3 (3.60-5.2); RDW 20.3 % (11.6-15.6); WHITE BLOOD COUNT 26.9 K/mm3 (4.0-10.0)
[2023-04-17 08:52] LABS: CALCIUM 7.8 mg/dL (8.5-10.1)
[2023-04-17 08:53] LABS: ALBUMIN 1.8 g/dl (3.4-5.0); BLOOD UREA NITROGEN 68.6 mg/dL (7-18)
[2023-04-17 08:56] LABS: LACTIC ACID 3.5 mmol/L (0.4-2.0)
[2023-04-17 08:57] LABS: BILIRUBIN,TOTAL 0.6 mg/dL (0.2-1); CREATININE 1.8 mg/dL (0.55-1.3)
[2023-04-17 09:35] LABS: ARTERIAL BLD GAS O2 SATURATION 98.5 % (95-98); ARTERIAL BLOOD GAS BASE EXCESS -6.8 mmol/L (-2-2); ARTERIAL BLOOD GAS PO2 145.7 mmHg (80-100); ARTERIAL BLOOD GAS pH 7.244 (7.350-7.450)
[2023-04-17 09:37] LABS: ALLENS TEST POSITIVE
[2023-04-17 10:40] LABS: ANISOCYTOSIS 2+; MACROCYTOSIS 0; OVALOCYTE 2+; TEAR DROP CELLS 2+
[2023-04-17] MEDS: PANTOPRAZOLE 20 MG TABLET PO SCH (11:39)
[2023-04-17] MEDS ORDERED: VANCOMYCIN/WATER FOR INJ (PEG) 1,000 MG/200 ML BAG IVPB SCH ×2 (14:15→17:00)
[2023-04-17] MEDS ORDERED: DAPTOMYCIN IVPB ONE (17:00)
[2023-04-17] MEDS ORDERED: SODIUM CHLORIDE IVPB ONE (17:00)
[2023-04-17] MEDS: CEFEPIME 1 GM in DEXTROSE 5%-WATER 100 ML IVPB SCH (17:34)
[2023-04-17] MEDS: SODIUM HYPOCHLORITE 0.25%- 473 ML BULK BOTTLE TP SCH (18:23)
[2023-04-18] MEDS: DEXTROSE 5%-0.45% SALINE 1,000 ML IV SCH (05:29)
[2023-04-18] MEDS: CEFEPIME 1 GM in DEXTROSE 5%-WATER 100 ML IVPB SCH ×2 (05:29→18:42)
[2023-04-18 06:39] LABS: MCH 29.3 pg (25.7-33.7); MCHC 30.7 g/dl (32.0-36.0); MEAN CELL VOLUME 95.6 fl (80-96); MEAN PLT VOLUME 8.1 fl (7.5-11.1); PLATELET COUNT 190 10^3/uL (134-434); RBC 2.72 M/mm3 (3.60-5.2); RDW 20.4 % (11.6-15.6); WHITE BLOOD COUNT 26.4 K/mm3 (4.0-10.0)
[2023-04-18 07:21] LABS: POTASSIUM 3.9 mmol/L (3.5-5.1)
[2023-04-18 07:25] LABS: ALBUMIN 1.8 g/dl (3.4-5.0); CALCIUM 7.2 mg/dL (8.5-10.1)
[2023-04-18 07:26] LABS: BLOOD UREA NITROGEN 72.3 mg/dL (7-18)
[2023-04-18 07:30] LABS: TOT PROT 4.9 g/dl (6.4-8.2)
[2023-04-18 07:31] LABS: BILIRUBIN,TOTAL 0.4 mg/dL (0.2-1)
[2023-04-18 08:55] LABS: ANISOCYTOSIS 1+; MACROCYTOSIS 0
[2023-04-18] MEDS: PANTOPRAZOLE 20 MG TABLET PO SCH (09:46)
[2023-04-18] MEDS: SODIUM HYPOCHLORITE 0.25%- 473 ML BULK BOTTLE TP SCH (12:16)
[2023-04-19] MEDS: CEFEPIME 1 GM in DEXTROSE 5%-WATER 100 ML IVPB SCH ×2 (05:50→18:38)
[2023-04-19] MEDS: DEXTROSE 5%-0.45% SALINE 1,000 ML IV SCH (06:16)
[2023-04-19] MEDS: PANTOPRAZOLE 20 MG TABLET PO SCH (10:14)
[2023-04-19 11:22] LABS: HEMATOCRIT 23.6 % (32.4-45.2); HEMOGLOBIN 7.3 GM/dL (10.7-15.3); MCHC 30.8 g/dl (32.0-36.0); MEAN CELL VOLUME 94.1 fl (80-96); MEAN PLT VOLUME 8.3 fl (7.5-11.1); PLATELET COUNT 164 10^3/uL (134-434); RBC 2.51 M/mm3 (3.60-5.2); RDW 19.5 % (11.6-15.6); WHITE BLOOD COUNT 18.2 K/mm3 (4.0-10.0)
[2023-04-19 11:55] LABS: POTASSIUM 3.2 mmol/L (3.5-5.1)
[2023-04-19 11:57] LABS: ALBUMIN 1.8 g/dl (3.4-5.0); BLOOD UREA NITROGEN 78.3 mg/dL (7-18); CALCIUM 7.2 mg/dL (8.5-10.1)
[2023-04-19 12:02] LABS: BILIRUBIN,TOTAL 0.5 mg/dL (0.2-1); TOT PROT 4.6 g/dl (6.4-8.2)
[2023-04-19] MEDS: SODIUM HYPOCHLORITE 0.25%- 473 ML BULK BOTTLE TP SCH (12:31)
[2023-04-19 13:02] LABS: ANISOCYTOSIS 2+; MACROCYTOSIS 0; OVALOCYTE 1+
[2023-04-20] MEDS: CEFEPIME 1 GM in DEXTROSE 5%-WATER 100 ML IVPB SCH ×2 (04:21→17:50)
[2023-04-20] MEDS: PANTOPRAZOLE 20 MG TABLET PO SCH (10:33)
[2023-04-20] MEDS: DEXTROSE 5%-0.45% SALINE 1,000 ML IV SCH (10:34)
[2023-04-20] MEDS: SODIUM HYPOCHLORITE 0.25%- 473 ML BULK BOTTLE TP SCH (10:34)
[2023-04-20 10:47] LABS: HEMATOCRIT 23.3 % (32.4-45.2); HEMOGLOBIN 7.1 GM/dL (10.7-15.3); MCH 29.6 pg (25.7-33.7); MCHC 30.5 g/dl (32.0-36.0); MEAN CELL VOLUME 97.3 fl (80-96); MEAN PLT VOLUME 8.5 fl (7.5-11.1); PLATELET COUNT 167 10^3/uL (134-434); RDW 20.1 % (11.6-15.6); WHITE BLOOD COUNT 17.4 K/mm3 (4.0-10.0)
[2023-04-20 11:24] LABS: ANISOCYTOSIS 1+; MACROCYTOSIS 1+
[2023-04-20 11:27] LABS: POTASSIUM 3.1 mmol/L (3.5-5.1)
[2023-04-20 11:30] LABS: CALCIUM 7.5 mg/dL (8.5-10.1)
[2023-04-20 11:31] LABS: ALBUMIN 1.8 g/dl (3.4-5.0); BLOOD UREA NITROGEN 79.6 mg/dL (7-18)
[2023-04-20 11:35] LABS: BILIRUBIN,TOTAL 0.5 mg/dL (0.2-1); TOT PROT 4.7 g/dl (6.4-8.2)
[2023-04-21] MEDS: DEXTROSE 5%-0.45% SALINE 1,000 ML IV SCH (03:21)
[2023-04-21] MEDS: CEFEPIME 1 GM in DEXTROSE 5%-WATER 100 ML IVPB SCH ×2 (05:29→16:45)
[2023-04-21 09:17] LABS: POTASSIUM 3.2 mmol/L (3.5-5.1)
[2023-04-21 09:18] LABS: CALCIUM 7.7 mg/dL (8.5-10.1)
[2023-04-21 09:19] LABS: BLOOD UREA NITROGEN 86.7 mg/dL (7-18)
[2023-04-21 09:22] LABS: CREATININE 2.1 mg/dL (0.55-1.3)
[2023-04-21 09:53] LABS: BASO % 0.2 % (0-2.0); EOS % 0.1 % (0-4.5); HEMATOCRIT 22.4 % (32.4-45.2); LYMPH % 4.6 % (8-40); MCH 29.1 pg (25.7-33.7); MCHC 30.3 g/dl (32.0-36.0); MEAN PLT VOLUME 8.4 fl (7.5-11.1); MONO % 5.4 % (3.8-10.2); NEUT % 89.7 % (42.8-82.8); PLATELET COUNT 173 10^3/uL (134-434); RBC 2.34 M/mm3 (3.60-5.2); RDW 21.3 % (11.6-15.6); WHITE BLOOD COUNT 18.6 K/mm3 (4.0-10.0)
[2023-04-21 09:59] LABS: HEMOGLOBIN 6.8 GM/dL (10.7-15.3)
[2023-04-21 10:21] LABS: ANISOCYTOSIS 1+; MACROCYTOSIS 1+
[2023-04-21] MEDS: SODIUM HYPOCHLORITE 0.25%- 473 ML BULK BOTTLE TP SCH (10:55)
[2023-04-21] MEDS: PANTOPRAZOLE 20 MG TABLET PO SCH (10:56)
[2023-04-22] MEDS: CEFEPIME 1 GM in DEXTROSE 5%-WATER 100 ML IVPB SCH (04:30)
[2023-04-22] MEDS: DEXTROSE 5%-0.45% SALINE 1,000 ML IV SCH ×2 (04:30→14:43)
[2023-04-22 08:22] LABS: HEMATOCRIT 28.7 % (32.4-45.2); MCH 29.9 pg (25.7-33.7); MCHC 31.4 g/dl (32.0-36.0); MEAN CELL VOLUME 95.4 fl (80-96); MEAN PLT VOLUME 8.4 fl (7.5-11.1); PLATELET COUNT 166 10^3/uL (134-434); RBC 3.01 M/mm3 (3.60-5.2); RDW 18.4 % (11.6-15.6)
[2023-04-22 08:26] LABS: WHITE BLOOD COUNT 20.8 K/mm3 (4.0-10.0)
[2023-04-22 09:54] LABS: ANISOCYTOSIS 2+; CORRECTED WBC 18.41 K/mm3; MACROCYTOSIS 0; TEAR DROP CELLS 2+
[2023-04-22] MEDS: SODIUM HYPOCHLORITE 0.25%- 473 ML BULK BOTTLE TP SCH (10:48)
[2023-04-22] MEDS: PANTOPRAZOLE 20 MG TABLET PO SCH (10:48)
[2023-04-22] MEDS ORDERED: LACTATED RINGERS SOLUTION 1000 ML INFUS.BAG IV ONE (14:30)
[2023-04-22 15:05] LABS: ARTERIAL BLD GAS O2 SATURATION 97.1 % (95-98); ARTERIAL BLOOD GAS PO2 115.2 mmHg (80-100)
[2023-04-22 15:06] LABS: ALLENS TEST POSITIVE
[2023-04-22 15:09] LABS: ARTERIAL BLOOD GAS pH 7.174 (7.350-7.450)
[2023-04-23] MEDS: DEXTROSE 5%-0.45% SALINE 1,000 ML IV SCH (14:11)
[2023-04-24 07:47] VITALS: RESP 16
[2023-04-24 18:18] VITALS: BP 101/42; PULSE 101; TEMP 99.5
== END 2023-04-24 20:02 | disposition expired | DRG 871 ==
LOC: JER 17:28 → JERBED 19:46 → J4S 04-17 02:17
PROVIDERS: ADMIT Internal Medicine; ATTEND Family Medicine
PROC: 30233N1 Transfusion of Nonautologous Red Blood Cells into Peripheral Vein, Percutaneous Approach (ICD-10-PCS; principal; 2023-04-21)
DX: A41.9 Sepsis, unspecified organism (principal); J96.21 Acute and chronic respiratory failure with hypoxia; L89.103 Pressure ulcer of unspecified part of back, stage 3; L89.153 Pressure ulcer of sacral region, stage 3; C78.01 Secondary malignant neoplasm of right lung; C78.7 Secondary malignant neoplasm of liver and intrahepatic bile duct; C77.9 Secondary and unspecified malignant neoplasm of lymph node, unspecified; N17.9 Acute kidney failure, unspecified; E87.0 Hyperosmolality and hypernatremia; E87.20 Acidosis, unspecified; I24.89 Other forms of acute ischemic heart disease; J90 Pleural effusion, not elsewhere classified; C57.9 Malignant neoplasm of female genital organ, unspecified; L89.312 Pressure ulcer of right buttock, stage 2; I10 Essential (primary) hypertension; E78.5 Hyperlipidemia, unspecified; E03.9 Hypothyroidism, unspecified; D64.9 Anemia, unspecified; E83.42 Hypomagnesemia; E86.0 Dehydration
CPT/HCPCS: 0241U-QW; 36415; 36430; 36600; 71045-TC-FY; 71250-TC; 74176-TC; 80048; 80053; 81003; 82550; 82553; 82803; 83605; 83735; 84100; 84484; 85025; 85610; 85730; 86850; 86900; 86901; 86922; 87040; 87086; 93005; 93010; 99285-25; J0878; P9058